=== PATIENT | male | born 1975 | race Caucasian/White ===

== ENCOUNTER → 2020-11-07 15:55 | Outpatient (BNVA) | payer BC, SELFPAY | PROVIDERS: Family Provider Family Medicine; Visit Provider Nurse Practitioner | DX: Z20.822 Contact with and (suspected) exposure to COVID-19 (principal) | CPT/HCPCS: 87635 ==

== ENCOUNTER 2024-08-18 02:53 | Inpatient (IN) | payer SELFPAY ==
[2024-08-18] VITALS (18 sets, daily range): BP systolic 81–147; BP diastolic 48–95; PULSE 73–84; RESP 10–24; TEMP 36.5–37; O2SAT 94–100; BMI 31.5; BMI 33.2
--- NOTE | 2024-08-18 03:05 | XRR_ITS ---
PROCEDURE INFORMATION: Exam: XR Chest Exam date and time: 08/18/2024 3:07 AM Age: 48 years old Clinical indication: Chest pressure; C/O chest pain with hypertension TECHNIQUE: Imaging protocol: Radiologic exam of the chest. Views: 1 view. COMPARISON: No relevant prior studies available. FINDINGS: Lungs: Unremarkable. No consolidation. Pleural spaces: Unremarkable. No pleural effusion. No pneumothorax. Heart/Mediastinum: Borderline to mild cardiomegaly. Diaphragm: Elevation of the left hemidiaphragm consistent with eventration. Bones/joints: Unremarkable. XR/XR chest 1V portable [id number] IMPRESSION: Borderline to mild cardiomegaly.
--- NOTE | 2024-08-18 03:05 | ECG_ITS ---
[facility] [employer] Test Date: 2024-08-18 Pat Name: Marcin Macias Department: Room: Gender: Male Cotton Farmer: : 1975 Requested By: Paulo Billingsley Order Number: [id number] Brooke MD: LONG ANDERSON Measurements Intervals [place] Rate: 70 P: 28 SC: 159 QRS: -11 QRSD: 104 T: -66 QT: 448 QTc: 483 Interpretive Statements SINUS RHYTHM LEFT VENTRICULAR HYPERTROPHY AND ST-T CHANGE [VOLTAGE CRITERIA PLUS ST/T ABNORMALITY] No previous ECG available for comparison Electronically Signed On 08-18-2024 16:23:36 CDT by LONG ANDERSON [email or web address] [id number]
[2024-08-18] MEDS: aspirin 81 mg Chew Tablet 324 MG PO (03:10)
[2024-08-18 03:14] LABS: Basophils # 0.1 10^3/uL (0.0-0.1); Basophils % 0.4 %; Eosinophils # 0.1 10^3/uL (0.0-0.8); Eosinophils % 0.3 %; Hematocrit 43.2 % (37-53); Lymphocytes # 2.3 10^3/uL (0.8-4.8); Mean Corpuscular HGB Conc 34.3 g/dL (30-55); Mean Corpuscular Hemoglobin 30.9 pg (27-33); Mean Corpuscular Volume 90.2 fl (82-101); Mean Platelet Volume 10.2 fL (7.4-10.4); Monocytes # 1.2 10^3/uL (0.2-0.9); Monocytes % 6.6 %; Neutrophils # 13.72 10^3/uL (1.8-7.7); Neutrophils % 79.3 %; Nucleated Red Blood Cells % 0 %; Platelet Count 354 10^3/cmm (157-399); Red Blood Count 4.79 10^6/uL (3.85-5.65); White Blood Count 17.33 10^3/uL (3.29-11.43)
[2024-08-18 03:33] LABS: Alanine Aminotransferase 28 U/L (0-41); Albumin Level 4.6 g/dL (3.5-5.2); Alkaline Phosphatase 80 U/L (40-130); Anion Gap 17.9 (5-19); Aspartate Amino Transferase 36 U/L (0-40); Blood Urea Nitrogen 29 mg/dL (6-20); Calcium 9.6 mg/dL (8.5-10.5); Carbon Dioxide 27 mmol/L (22-29); Chloride 99 mmol/L (98-107); Creatinine Clr Calc Pharmacy 56.9122; Globulin 2.3 g/dL (1.3-4.6); Glomerular Filtration Rate 38.2 mL/min (90-130); Glucose 159 mg/dL (65-115); Osmolality Calculated 299 mOsm/kg (285-295); Potassium 3.9 mmol/L (3.5-5.1); Sodium 140 mmol/L (136-145); Total Bilirubin 0.4 mg/dL (0.15-1.2); Total Protein 6.9 g/dL (6.6-8.7)
[2024-08-18] MEDS: ondansetron 2 mg/ML SDV 2 mL 4 MG IVP ×2 (03:38→11:18)
[2024-08-18 03:39] LABS: Troponin(5th) Baseline 312 ng/L (0-15)
[2024-08-18] MEDS: sodium chloride 0.9% 1,000 ML 999 ML IV (03:39)
[2024-08-18] MEDS: ticagrelor 90 mg Tablet 180 MG PO (03:49)
[2024-08-18] MEDS: heparin 5,000 unit/mL INJ 1 mL 4000 UNIT IVP (03:50)
--- NOTE | 2024-08-18 03:53 | W.ED.CHESTPA ---
HPI - Chest Pain General: Chief Complaint: Chest Pain Stated Complaint: Cp Sob Dizzy back pain Time Seen by Provider: 08/18/24 02:59 History of Present Illness: 48-year-old male who presents emerged part with complaint of chest pain. He states that the pain started around 830 tonight. States that he came short of breath and diaphoretic and had pain up to his neck and down his left shoulder. He was concerned that maybe his blood pressure was too high so his mother gave him one of her blood pressure medications although they did not actually take his blood pressure so they are not sure what his blood pressure was. The medication that his mother gave him is losartan. Unsure of the dosage. Patient occasionally chews tobacco but otherwise no other smoking history. Is not diabetic. Has not seen a physician in many years. Related Data Home Medications ?Medication ?Instructions ?Recorded ?Confirmed No Known Home Medications 11/07/20 11/07/20 Allergies Allergy/AdvReac Type Severity Reaction Status Date / Time No Known Allergies Allergy Verified 11/07/20 15:40 Physical Exam Const: COMMON NORMALS: average body habitus, patient oriented x3, no limitations, healthy appearing, alert and well nourished Neck/C-Spine: COMMON NORMALS: no JVD Resp: COMMON NORMALS: normal respiratory effort, No retractions, No use of accessory muscles, clear to auscultation bilaterally and percussion normal AUSCULTATION: clear to auscultation bilaterally PERCUSSION: percussion normal Cardio: COMMON NORMALS: no JVD, regular rate, regular rhythm, S1 normal heart sound present, S2 normal heart sound present, No gallops present (Cardio), No clicks present (Cardio), No murmurs present (Cardio), No rub (Cardio) and Peripheral pulses 2+ throughout RATE: regular rate RHYTHM: regular rhythm HEART SOUNDS: S1 normal heart sound present and S2 normal heart sound present PERIPHERAL PULSES: Peripheral pulses 2+ throughout GI: COMMON NORMALS: Normal to inspection, nondistended, normoactive bowel sounds present, Soft to palpation, non-tender, No hepatosplenomegaly present, no masses and no bruits PALPATION: Yes Soft to palpation and Yes No hepatosplenomegaly present Neuro: COMMON NORMALS: patient oriented x3, no focal motor deficits and no sensory deficits noted SENSORIUM/ORIENTATION: Yes alert Course Vital Signs: Vital signs: Vital Signs Temperature 97.7 F 08/18/24 03:02 Pulse Rate 74 08/18/24 03:52 Respiratory Rate 18 08/18/24 03:02 Blood Pressure 81/48 08/18/24 03:52 Pulse Oximetry 97 08/18/24 03:52 Oxygen Delivery Me thod Room Air 08/18/24 03:52 MDM - Chest Pain Medical Decision Making Patient presents emerged from with complaint of chest pain x 7 hours. No previous cardiac history. EKG shows some nonspecific ST and T wave changes. There are some mild ST elevations in aVF and morphology that is concerning in leads II and III with an inverted T waves in the anterior leads. Does not meet criteria for ST elevation TN but is very concerning based upon morphology. EKG was repeated 3 times with similar results. Initial troponin came back at 312. Discussed case with Dr. Richardson. He agrees to take patient to cardiac [facility] tonight. Patient's blood pressure is low and concerning patient is having acute TN. Patient was given p.o. aspirin and p.o. Brilinta as well as IV heparin. Given 2 L of IV fluids to bring pressure back up. Given Zofran for nausea and vomiting. Lab Data 08/18/24 03:02 08/18/24 03:02 Laboratory Results WBC 17.33 10^3/uL (3.29-11.43) H 08/18/24 03:02 RBC 4.79 10^6/uL (3.85-5.65) 08/18/24 03:02 Hgb 14.80 g/dL (11.27-16.99) 08/18/24 03:02 Hct 43.2 % (37-53) 08/18/24 03:02 MCV 90.2 fl (82-101) 08/18/24 03:02 MCH 30.9 pg (27-33) 08/18/24 03:02 MCHC 34.3 g/dL (30-55) 08/18/24 03:02 RDW 13.0 % (12.1-15.1) 08/18/24 03:02 Plt Count 354 10^3/cmm (157-399) 08/18/24 03:02 MPV 10.2 fL (7.4-10.4) 08/18/24 03:02 Neut % (Auto) 79.3 % 08/18/24 03:02 Lymph % (Auto) 13.0 % 08/18/24 03:02 [place] % (Auto) 6.6 % 08/18/24 03:02 Eos % (Auto) 0.3 % 08/18/24 03:02 Baso % (Auto) 0.4 % 08/18/24 03:02 Neut # (Auto) 13.72 10^3/uL (1.8-7.7) H 08/18/24 03:02 Lymph # (Auto) 2.3 10^3/uL (0.8-4.8) 08/18/24 03:02 [place] # (Auto) 1.2 10^3/uL (0.2-0.9) H 08/18/24 03:02 Eos # (Auto) 0.1 10^3/uL (0.0-0.8) 08/18/24 03:02 Baso # (Auto) 0.1 10^3/uL (0.0-0.1) 08/18/24 03:02 Nucleated RBC % (auto) 0 % 08/18/24 03:02 Nucleated RBCs # 0.0 /100WBC 08/18/24 03:02 Sodium 140 mmol/L (136-145) 08/18/24 03:02 Potassium 3.9 mmol/L (3.5-5.1) 08/18/24 03:02 Chloride 99 mmol/L (98-107) 08/18/24 03:02 Carbon Dioxide 27 mmol/L (22-29) 08/18/24 03:02 Anion Gap 17.9 (5-19) 08/18/24 03:02 BUN 29 mg/dL (6-20) H 08/18/24 03:02 Creatinine 1.9 mg/dL (0.7-1.2) H 08/18/24 03:02 GFR Calculation 38.2 mL/min (90-130) L 08/18/24 03:02 Glucose 159 mg/dL (65-115) H 08/18/24 03:02 Calculated Osmolality 299 mOsm/kg (285-295) H 08/18/24 03:02 Calcium 9.6 mg/dL (8.5-10.5) 08/18/24 03:02 Total Bilirubin 0.4 mg/dL (0.15-1.2) 08/18/24 03:02 AST 36 U/L (0-40) 08/18/24 03:02 ALT 28 U/L (0-41) 08/18/24 03:02 Alkaline Phosphatase 80 U/L (40-130) 08/18/24 03:02 Troponin T Baseline 312 ng/L (0-15) H* 08/18/24 03:02 Total Protein 6.9 g/dL (6.6-8.7) 08/18/24 03:02 Albumin 4.6 g/dL (3.5-5.2) 08/18/24 03:02 Globulin 2.3 g/dL (1.3-4.6) 08/18/24 03:02 XR interpretation done by ED provider, pending radiology final review Discharge Plan Discharge Condition: Stable Prescriptions: No Action No Known Home Medications Referrals: Godfrey Cornelius MD [Family Provider, Family Practice] Print Language: Yakut Coding Level of Care Code ED Dispatcher Ship Pilot for Avril Morley
--- NOTE | 2024-08-18 04:22 | W.PM.OPSUD ---
Surgery/Procedure H&P Update DATE OF PROCEDURE: August 18, 2024 DATE H&P PERFORMED: 08/18/24 H&P UPDATE INFORMATION: I have reviewed H&P completed within last 30 days, I have examined patient prior to procedure and No changes to prior documentation PREOP DIAGNOSIS: ST elevation ID PATIENT REASSESSED PRIOR TO SEDATION, WITH NO CHANGE NOTED: Yes PHYSICAL EXAM: alert, oriented x 3, clear to auscultation bilaterally, regular rate & rhythm and operative site marked AIRWAY EVAL/ANESTHESIA PLAN: ASA II, Risks, benefits & alternatives of sedation and/or procedure discussed and Patient agrees to continue as planned ADDITIONAL INFORMATION: All risk-benefit and alternative for the procedure has been explained. Patient understand 2% risk of stroke major bleed arrhythmia, patient understand 5% risk of infection hematoma pseudoaneurysm urgent emergent vascular or coronary/cardiac surgery. He would like to proceed with
--- NOTE | 2024-08-18 04:24 | PM.HP ---
Providers/Chief Complaint Chief Complaint: Cp Sob Dizzy back pain History of Present Illness Marcin Macias is a 48 year old male presented to emergency with chest pain which started off and on basis 6 PM last night. Twelve-lead EKG was concerning with subtle ST elevations in the inferior/inferolateral leads. He was also noted to be hypotensive blood pressure systolic in the 70s. ST elevation [place] was called and activated, he was given IV fluid, IV heparin and loaded with Brilinta and aspirin. When I saw the patient in the emergency room he still have the pain but blood pressure has come up. He had 30 beat run of ventricular tachycardia. At this point we are deciding to take him to the Social Insurance Administrator for emergent left heart cath/PCI. Medications/Allergies Home Medications ?Medication ?Instructions ?Recorded ?Confirmed ?Last Taken ?Type No Known Home Medications 11/07/20 11/07/20 Unknown History Allergies Allergy/AdvReac Type Severity Reaction Status Date / Time No Known Allergies Allergy Verified 11/07/20 15:40 Vitals/I&O/Wt Last Vital Signs Temp 97.7 F 08/18/24 03:02 Pulse 77 08/18/24 04:06 Resp 24 H 08/18/24 04:06 BP 118/68 08/18/24 04:06 Pulse Ox 96 08/18/24 04:06 O2 Del Method Room Air 08/18/24 04:06 08/17/24 08/17/24 08/18/24 14:59 22:59 06:59 Intake Total 0 / 0 Balance 0 / 0 Weight last 48 hrs Weight 220 lb Physical Exam Const: OTHER: GENERAL: Patient is alert, awake and oriented x3. He is in moderate distress HEART: Regular S1 and S2. No murmur, rub or gallop. LUNGS: Clear to auscultate bilaterally. CENTRAL NERVOUS SYSTEM: Grossly nonfocal. EXTREMITIES: Lower extremities with out edema bilaterally. Data 08/18/24 03:02 08/18/24 03:02 A&P Assessment and plan (1) ST elevation [place] (STEMI): Will proceed with urgent left heart cath/PCI if indicated. Patient has been explained all risk-benefit and alternative for the procedure he would like to proceed with it. (2) Hypotension: Most likely secondary to myocardial infarction/RV involvement, agree with IV fluid (3) Arrhythmia: Secondary to ischemia, we will take him to the Social Insurance Administrator if needed we will start him on amiodarone. PDMP PDMP Reviewed: Not Reviewed Attestations Medical Necessity Statement*: I am expecting his stay to cross more than 2 midnights he will be admitted as an inpatient. Coding Level of Care Code [facility] elevation [place] (STEMI) I21.3 Hypotension I95.9 Arrhythmia I49.9
--- NOTE | 2024-08-18 05:05 | ECG_ITS ---
[facility] Test Date: 2024-08-18 Pat Name: Marcin Macias Department: Room: Gender: Male Licensing Coordinator: : 1975 Requested By: Paulo Billingsley Order Number: [id number] Brooke MD: LONG ANDERSON Measurements Intervals [place] Rate: 76 P: 40 VA: 154 QRS: -10 QRSD: 92 T: 137 QT: 417 QTc: 469 Interpretive Statements SINUS RHYTHM MODERATE T-WAVE ABNORMALITY, CONSIDER ANTEROLATERAL ISCHEMIA [-0.1+ mV T-WAVE IN V3-V6] No previous ECG available for comparison Electronically Signed On 08-18-2024 16:24:26 CDT by LONG ANDERSON [id number]
--- NOTE | 2024-08-18 05:25 | PM.PROC ---
Procedure Note: Date of procedure: 08/18/24 Pre-procedure diagnosis: ST elevation [place] Procedure: Left heart catheterization was performed Left main is normal LAD has luminal irregularity without significant stenosis LCx has luminal irregularity without significant stenosis RCA is the culprit vessel is a large caliber size vessel with mid high-grade 99% stenosis with TRICIA II flow Intervention: Successful PCI to mid RCA with single drug-eluting stent postdilated with noncompliant balloon. Due to tortuosity of the aorta we did not cross the aorta to do LV gram at the same time patient creatinine is 1.9 therefore we will avoid further contrast will ask for echocardiogram Plan Radial band as per protocol Continue IV fluid drip for 100 mL/h for 1 L Continue aspirin statin Continue Brilinta from tomorrow 90 mg twice daily patient was already loaded with 180 mg of Brilinta today in the ER Echocardiogram will be obtained Coding Level of Care Code Acute Code for Avril Morley
--- NOTE | 2024-08-18 05:27 | USCV_ITS ---
Gilberto Marcin Age: 48 Gender: M : 1975 Exam Date: 08/18/2024 08:33 Ordering Phys: Shi Richardson MD ([email or web address]) Technologist: PUJA [place] [facility] [place]: stemi BP: 130 / 86 HR: 75 Rhythm: Sinus Technical Quality: Adequate MEASUREMENTS (Male / Female) Normal Values 2D ECHO LV Diastolic Diameter PLAX 4.3 cm 4.2 - 5.9 / 3.9 - 5.3 cm IVS Diastolic Thickness 1.6 cm 0.6 - 1.0 / 0.6 - 0.9 cm IVS Systolic Thickness 1.8 cm LVPW Diastolic Thickness 1.5 cm 0.6 - 1.0 / 0.6 - 0.9 cm LVPW Systolic Thickness 1.9 cm LVOT Diameter 2.1 cm LV Ejection Fraction 2D Teich 51.3 % LV Ejection Fraction MOD 4C 55.2 % LV Ejection Fraction MOD 2C 52.3 % LV Ejection Fraction 2C AL 54.2 % LA Diameter 3.4 cm RA Systolic Volume 4C AL 25.3 ml RA Systolic Volume 4C MOD 25.1 ml LA Sys Volume AL 37.8 cm cubed LA Sys Volume Index AL 16.4 cm cubed/m squared Aorta at Sinotubular Diameter 2.6 cm IVC Diameter 2.0 cm M-MODE LA Ao Ratio MM 1.0 AV Cusp Separation MM 2.2 cm DOPPLER AV Peak Velocity 121.0 cm/s LVOT Peak Velocity 84.0 cm/s AV Area Cont Eq vti 2.2 cm squared AV Area Cont Eq pk 2.4 cm squared MV Peak Velocity 90.0 cm/s MV Area PHT 3.1 cm squared Mitral E to A Ratio 0.7 TR Peak Velocity 260.0 cm/s TR Peak Gradient 27.0 mmHg TR Mean Velocity 234.0 cm/s TR Mean Gradient 22.1 mmHg TR Velocity Time Integral 73.7 cm PV Peak Velocity 85.0 cm/s RV Ejection Time 0.3 s FINDINGS Left Ventricle Mild to moderate concentric left tubular hypertrophy.abnormal septal motion consistent with conduction abnormality. LV ejection fraction of 54%.Grade I/IV diastolic dysfunction (abnormal relaxation filling pattern), normal to mildly elevated filling pressures. Right Ventricle The right ventricle is normal in size and function. Right Atrium The right atrium is normal in size. Left Atrium Mildly increased left atrial size. Mitral Valve No gross abnormalities noted Aortic Valve No gross abnormalities noted Tricuspid Valve Trace tricuspid valve regurgitation. Estimated pulmonary artery peak systolic pressure within normal limits Pulmonic Valve Pulmonic valve not well visualized. Pericardium No pericardial effusion. Aorta Normal aortic annulus size. IVC Normal inferior vena cava. CONCLUSIONS Mild to moderate concentric left tubular hypertrophy.abnormal septal motion consistent with conduction abnormality. LV ejection fraction of 54%.Grade I/IV diastolic dysfunction (abnormal relaxation filling pattern), normal to mildly elevated filling pressures. Mildly increased left atrial size. Trace tricuspid valve regurgitation. Estimated pulmonary artery peak systolic pressure within normal limits. There is no pericardial effusion. There are no intracardiac masses. No similar previous studies are available for comparison Dr Gary Samuels MD FAC (Electronically Signed) Final Date: 20 Aug 2024 07:37 S
[2024-08-18] MEDS: sodium chloride 0.9% 1,000 ML 100 ML IV ×3 (05:55→23:51)
[2024-08-18] MEDS: HYDROcodone-acetaminophen 5-325 mg Tablet 1 TAB PO (05:56)
--- NOTE | 2024-08-18 06:36 | PC.NURSE ---
TR band 0630 2 mL removed
[2024-08-18] MEDS: morphine 4 mg/mL SDV 1 mL 2 MG IVP (07:33)
--- NOTE | 2024-08-18 07:57 | PC.PHAR ---
Pt states he uses [facility] and only takes ASA and Sertraline.
[2024-08-18] MEDS: ticagrelor 90 mg Tablet PO (09:00)
--- NOTE | 2024-08-18 09:14 | ECG_ITS ---
[facility] Test Date: 2024-08-18 Pat Name: Marcin Macias Department: Room: ICU11 Gender: Male Is Project Manager: : 1975 Requested By: Paulo Billingsley Order Number: [id number] Reading MD: LONG ANDERSON Measurements Intervals [place] Rate: 79 P: 39 CT: 155 QRS: -30 QRSD: 105 T: 140 QT: 413 QTc: 476 Interpretive Statements SINUS RHYTHM LEFT VENTRICULAR HYPERTROPHY AND ST-T CHANGE [VOLTAGE CRITERIA PLUS ST/T ABNORMALITY] Compared to ECG 08/18/2024 04:07:40 Left ventricular hypertrophy now present ST (T wave) deviation now present Myocardial infarct finding no longer present T-wave abnormality no longer present Possible ischemia no longer present Electronically Signed On 08-18-2024 16:24:22 CDT by LONG ANDERSON [email or web address] [id number]
--- NOTE | 2024-08-18 12:29 | PC.NURSE ---
0700 2 mL removed from Right radial TR band. Resting in bed, v/s stable. Reports having medial chest pain with no relief from hydrocodone. Notified Dr. Richardson, order given for Morphine 2g IVP every 2 hours prn pain. 0715 -- 2 mL air removed from right radial TR band. 0845 -- 2mL air removed from right radial TR band. 0915 -- 2mL air removed from right radial TR band. 0945 -- 2mL air removed from right radial TR band. 1000 -- last 2mL or air removed from right radial TR band. No bleeding or hematoma noted. 1045 -- TR band removed from right wrist. No bleeding or hematoma noted. Bandaid placed over puncture site. 1215 -- Dr. Richardson to bedside, patient assessed. Notified that patient is having shortness of breath and feels like he can not take a deep breath. Brilinta discontinued, plavix ordered. Hgb A1C ordered.
[2024-08-18 12:50] LABS: Estmated Average Glucose 140; Hemoglobin A1C 6.5 % (4.0-6.0)
--- NOTE | 2024-08-18 13:19 | PC.NURSE ---
Report given to JOSÉ Rudolph.
--- NOTE | 2024-08-18 14:07 | PC.NURSE ---
Transferred to 103 via wheelchair. Tolerated well.
--- NOTE | 2024-08-18 15:04 | PC.NURSE ---
Patient received from ICU. Patient is s/p STEMI with PCI and right radial access. Dressing to site remains c,d,i without s/s of bleeding or hematoma formation observed. Instructed patient on site care with restrictions, importance of medication compliance and pain expectation post procedure. Patient and family all verbalized complete understanding. Patient denies pain or needs at time. Will continue to monitor.
[2024-08-18] MEDS: clopidogrel 300 mg Tablet 600 MG PO (20:53)
[2024-08-18] MEDS: atorvastatin 40 mg Tablet 80 MG PO (20:53)
[2024-08-19] VITALS (7 sets, daily range): BP systolic 112–153; BP diastolic 78–105; PULSE 63–77; RESP 16–24; TEMP 36.6–36.7; O2SAT 95–99
--- NOTE | 2024-08-19 01:12 | PC.NURSE ---
Patient is having episodes of sleep apnea, tried using 2 liters of 02 nasal cannula for a couple of hours. This helped, patient is now refusing even after trying humidified. Will continue to monitor
[2024-08-19 03:23] LABS: Basophils # 0.1 10^3/uL (0.0-0.1); Basophils % 0.6 %; Eosinophils # 0.2 10^3/uL (0.0-0.8); Eosinophils % 1.6 %; Lymphocytes # 3.3 10^3/uL (0.8-4.8); Lymphocytes % 29.9 %; Mean Corpuscular HGB Conc 32.4 g/dL (30-55); Mean Corpuscular Hemoglobin 31.1 pg (27-33); Mean Corpuscular Volume 96.1 fl (82-101); Mean Platelet Volume 10.2 fL (7.4-10.4); Monocytes # 1.2 10^3/uL (0.2-0.9); Monocytes % 11.3 %; Neutrophils # 6.15 10^3/uL (1.8-7.7); Neutrophils % 56.3 %; Nucleated Red Blood Cells % 0 %; Platelet Count 249 10^3/cmm (157-399); Red Blood Count 4.37 10^6/uL (3.85-5.65); Red Cell Distribution Width 13.4 % (12.1-15.1); White Blood Count 10.92 10^3/uL (3.29-11.43)
[2024-08-19 03:35] LABS: Anion Gap 15.1 (5-19); Blood Urea Nitrogen 15 mg/dL (6-20); Calcium 8.7 mg/dL (8.5-10.5); Carbon Dioxide 22 mmol/L (22-29); Chloride 108 mmol/L (98-107); Creatinine Clr Calc Pharmacy 123.1389; Glomerular Filtration Rate 90.4 mL/min (90-130); Glucose 115 mg/dL (65-115); Osmolality Calculated 294 mOsm/kg (285-295); Potassium 4.1 mmol/L (3.5-5.1); Sodium 141 mmol/L (136-145)
[2024-08-19] MEDS: clopidogrel 75 mg Tablet PO (08:26)
[2024-08-19] MEDS: HYDROcodone-acetaminophen 5-325 mg Tablet 1 TAB PO (09:53)
[2024-08-19 15:34] LABS: Estmated Average Glucose 134; Hemoglobin A1C 6.3 % (4.0-6.0)
--- NOTE | 2024-08-19 16:20 | P.PN_ITS ---
Subjective 2 Subjective: Patient has no overnight event blood pressure is stable creatinine has improved to normal Vitals/I&O/Wt Last Vital Signs Temp 98.0 F 08/19/24 16:06 Pulse 69 08/19/24 16:06 Resp 18 08/19/24 16:06 BP 153/83 08/19/24 16:06 Pulse Ox 97 08/19/24 16:06 O2 Del Method Room Air 08/19/24 11:49 08/19/24 08/19/24 08/19/24 06:59 14:59 22:59 Intake Total 1425.000 / 2846.667 360 / 360 Output Total 800 / 1700 Balance 625.000 / 1146.667 360 / 360 Weight last 48 hrs Weight 240 lb 14.4 oz Weight 231 lb 7.766 oz Weight 220 lb Physical Exam 2 Const: COMMON NORMALS: alert OTHER: GENERAL: Patient is alert, awake and oriented x3. HEART: Regular S1 and S2. No murmur, rub or gallop. LUNGS: Clear to auscultate bilaterally. CENTRAL NERVOUS SYSTEM: Grossly nonfocal. EXTREMITIES: Lower extremities with out edema bilaterally. Resp: COMMON NORMALS: clear to auscultation bilaterally AUSCULTATION: clear to auscultation bilaterally Neuro: SENSORIUM/ORIENTATION: Yes alert Data 08/19/24 02:57 08/19/24 02:57 A&P Assessment and plan (1) ST elevation [place] (STEMI): Will proceed with urgent left heart cath/PCI if indicated. Patient has been explained all risk-benefit and alternative for the procedure he would like to proceed with it. (2) Hypotension: Most likely secondary to myocardial infarction/RV involvement, agree with IV fluid (3) Arrhythmia: Secondary to ischemia, we will take him to the Tieing Machine Operator if needed we will start him on amiodarone. Plan Overall patient doing fine from cardiovascular perspective I will add metoprolol and HERB inhibitor, waiting echo read Continue aspirin statin and Plavix Since we switched patient from Brilinta to Plavix shortness of breath is improved as patient was complaining of shortness of breath yesterday. He appeared to be euvolemic. Patient has been advised to walk around Will check hemoglobin A1c and lipid profile in the morning Possible discharge in the morning PDMP PDMP Reviewed: Not Reviewed Attestations 2 Medical Necessity Statement*: Patient require continuation of hospitalization for evaluation and care Coding Level of Care Code Acute Code for [facility] Diagnoses ST elevation PR (STEMI) I21.3 Hypotension I95.9 Arrhythmia I49.9
[2024-08-19] MEDS: metoprolol succinate ER (24 HR) 25 mg Tablet 12.5 MG PO (16:33)
[2024-08-19 16:40] LABS: Chol HDL Ratio 2.64 mg/dL (1.0-5.00); Cholesterol 145 mg/dL (0-200); HDL Cholesterol 55 mg/dL (60-100); LDL Cholesterol Calculated 69 mg/dL (50-129); LDL HDL Ratio 1.25 RATIO (0.00-3.22); Triglycerides 107 mg/dL (0-150)
[2024-08-19] MEDS: atorvastatin 40 mg Tablet 80 MG PO (20:34)
[2024-08-20 00:07] VITALS: BP 149/91; PULSE 68; RESP 18; TEMP 36.4; O2SAT 99
[2024-08-20 04:04] VITALS: BP 153/96; PULSE 67; RESP 15; TEMP 36.4; O2SAT 98
[2024-08-20 05:54] VITALS: PULSE 66
[2024-08-20 07:56] VITALS: BP 143/88; PULSE 75; RESP 20; TEMP 37; O2SAT 97
[2024-08-20] MEDS: aspirin 81 mg EC Tablet PO (08:19)
[2024-08-20] MEDS: sertraline 50 mg Tablet 25 MG PO (08:19)
[2024-08-20] MEDS: lisinopril 2.5 mg Tablet PO (08:20)
[2024-08-20] MEDS: metoprolol succinate ER (24 HR) 25 mg Tablet 12.5 MG PO (08:20)
[2024-08-20] MEDS: clopidogrel 75 mg Tablet PO (08:20)
[2024-08-20 08:37] LABS: Basophils # 0.1 10^3/uL (0.0-0.1); Basophils % 0.5 %; Eosinophils # 0.2 10^3/uL (0.0-0.8); Hematocrit 42.6 % (37-53); Lymphocytes # 2.3 10^3/uL (0.8-4.8); Lymphocytes % 24.9 %; Mean Corpuscular HGB Conc 33.6 g/dL (30-55); Mean Corpuscular Hemoglobin 30.8 pg (27-33); Mean Corpuscular Volume 91.6 fl (82-101); Mean Platelet Volume 10.2 fL (7.4-10.4); Monocytes # 0.9 10^3/uL (0.2-0.9); Neutrophils # 5.73 10^3/uL (1.8-7.7); Neutrophils % 62.2 %; Nucleated Red Blood Cells % 0 %; Platelet Count 264 10^3/cmm (157-399); Red Blood Count 4.65 10^6/uL (3.85-5.65); Red Cell Distribution Width 13.2 % (12.1-15.1); White Blood Count 9.21 10^3/uL (3.29-11.43)
[2024-08-20 09:03] LABS: Anion Gap 17.2 (5-19); Blood Urea Nitrogen 11 mg/dL (6-20); Calcium 9.1 mg/dL (8.5-10.5); Carbon Dioxide 25 mmol/L (22-29); Chloride 103 mmol/L (98-107); Creatinine Clr Calc Pharmacy 140.4985; Glomerular Filtration Rate 103.6 mL/min (90-130); Glucose 113 mg/dL (65-115); Osmolality Calculated 292 mOsm/kg (285-295); Potassium 4.2 mmol/L (3.5-5.1); Sodium 141 mmol/L (136-145)
--- NOTE | 2024-08-20 09:03 | PC.CHAP ---
Pastoral Care Encounter/Spiritual Assessment Type of Contact [] Declined kick plate installer visit [] Patient/Family/Request visit [] Outpatient visit [] Follow-up visit [] Physician referral [] Code/Alert [x] Routine visit [] Staff referral [] Actively dying [] Patient sleeping [] Family support [] [] Out of room [] Palliative care [] [] Receiving care in room [] Pre-surgical visit [] Trauma [] Long length of stay [] ICU visit [] Other: Relational/Emotional Strength [] Patient feels connected with others/family/visitors/staff [] Distress [] Loneliness/isolation [] Abandonment Spirituality of Patient [x] Person of Shelbie [] Attends Yarsanism of their Shelbie [x] Believes in Prayer [] Reads Bible or Advent materials [] There are Spiritual issues to be addressed System Technologist Interventions [x] Prayer [x] Active listening [] Non-anxious presence [] Spiritual/emotional support [] Crisis/trauma care [] Spiritual counseling [] Bereavement support [] Provided bereavement packet [x] Provided Bible/devotional materials [] Provided toy/stuffed animal, coloring book to patient or family member [] Provided Communion [] Anointing/Epworth [] Salvation [x] Completed spiritual assessment [] Other: Impact on Illness or Injury [] Angry [] Fearful [] Anxious [] Often cries [] Exhaustion [] Unable to work [] Unable to attend scientologist [] Unable to walk/stand [] Unable to read [] Unable to drive [] Unable to eat/drink [] Unable to sleep [] Unable to be with family [] Patient intubated [] Other: Summary Time spent with patient 5 min
--- NOTE | 2024-08-20 10:20 | P.DS_ITS ---
<Statement entered by Shi Richardson MD - 08/20/24 21:00> Patient was evaluated and cared for in conjunction with an advanced practice practitioner. I personally examined the patient and reviewed the chart and all pertinent data including imaging, telemetry, and laboratory results. I discussed the patient in detail with the advanced practice practitioner. Please see their note for complete H&P testing result and agreed upon plan of care for the patient. Discharge Providers Date of Admission: 08/18/24 05:29 Date of Discharge: August 20, 2024 Attending Provider at Admission: Shi Richardson MD Attending Provider at Discharge: Shi Richardson MD Diagnoses at Discharge Discharge Diagnosis (1) ST elevation HI (STEMI): Status: Acute (2) Hypotension: Status: Acute (3) Arrhythmia: Status: Acute Reason for Visit Reason for Visit: Cp Sob Dizzy back pain Brief History: Marcin Macias is a 48 year old male presented to emergency with chest pain which started off and on basis 6 PM last night. Twelve-lead EKG was concerning with subtle ST elevations in the inferior/inferolateral leads. He was also noted to be hypotensive blood pressure systolic in the 70s. ST elevation HI was called and activated, he was given IV fluid, IV heparin and loaded with Brilinta and aspirin. When I saw the patient in the emergency room he still have the pain but blood pressure has come up. He had 30 beat run of ventricular tachycardia. At this point we are deciding to take him to the [facility] for emergent left heart cath/PCI. Hospital Course Hospital Course Coronary angiogram on 08/18/2024 showed normal left main, LAD, left circumflex. The RCA contained significant mid vessel stenosis treated with JAILYN x 1. Initially treated with Brilinta, transitioned to Plavix due to shortness of breath. Right radial cath site looks good without hematoma. Renal function is normal today. Will plan to discharge home with aspirin, Plavix, atorvastatin, metoprolol succinate, lisinopril. Blood pressure and heart rate have been well- controlled. Follow-up with cardiology [facility] in 7 to 10 days. Will need cardiac rehab. He has history of SAMIA, recommended he discuss treatment with his primary care provider. Physical Exam Const: COMMON NORMALS: no acute distress and patient oriented x3 GENERAL APPEARANCE: cooperative ORIENTATION/CONSCIOUSNESS: Yes awake, Yes oriented to person, Yes oriented to place and Yes oriented to time Chest: COMMONS NORMALS: normal inspection of the chest and normal palpation of entire chest wall CHEST: Yes Symmetrical chest wall rise Resp: COMMON NORMALS: normal respiratory effort, No retractions, No use of accessory muscles and clear to auscultation bilaterally AUSCULTATION: clear to auscultation bilaterally Cardio: COMMON NORMALS: regular rate, regular rhythm, S1 normal heart sound present, S2 normal heart sound present, No gallops present (Cardio), No clicks present (Cardio), No murmurs present (Cardio) and No rub (Cardio) RATE: regular rate RHYTHM: regular rhythm HEART SOUNDS: S1 normal heart sound present and S2 normal heart sound present PERIPHERAL PULSES: radial pulses present positive right 2+ and femoral pulses present positive right 2+ Neuro: COMMON NORMALS: patient oriented x3 and moves all extremities SENSORIUM/ORIENTATION: Yes oriented to person, Yes oriented to place and Yes oriented to time Skin: WOUNDS: Yes surgical site (no hematoma palpable) Details: no odor Discharge Data Studies Completed and Pending Completed Studies During Hospitalization Category Date Time Status CXRP [XR chest 1V portable [id number]] Stat Exams 08/18/24 03:05 Completed CV. echo complete* [id number] Routine Ultrasound 08/18/24 05:27 Completed Pending at discharge Category Date Time Status CAR USHER request for service Routine Exams 08/18/24 04:17 Taken Radiology Impressions Chest X-Ray 08/18/24 03:05 IMPRESSION: Borderline to mild cardiomegaly. Laboratory Results WBC 9.21 10^3/uL (3.29-11.43) 08/20/24 08:28 RBC 4.65 10^6/uL (3.85-5.65) 08/20/24 08:28 Hgb 14.30 g/dL (11.27-16.99) 08/20/24 08:28 Hct 42.6 % (37-53) 08/20/24 08:28 MCV 91.6 fl (82-101) 08/20/24 08:28 MCH 30.8 pg (27-33) 08/20/24 08:28 MCHC 33.6 g/dL (30-55) 08/20/24 08:28 RDW 13.2 % (12.1-15.1) 08/20/24 08:28 Plt Count 264 10^3/cmm (157-399) 08/20/24 08:28 MPV 10.2 fL (7.4-10.4) 08/20/24 08:28 Neut % (Auto) 62.2 % 08/20/24 08: Lymph % (Auto) 24.9 % 08/20/24 08: [place] % (Auto) 10.0 % 08/20/24 08:28 Eos % (Auto) 2.0 % 08/20/24 08: Baso % (Auto) 0.5 % 08/20/24 08:28 Neut # (Auto) 5.73 10^3/uL (1.8-7.7) 08/20/24 08: Lymph # (Auto) 2.3 10^3/uL (0.8-4.8) 08/20/24 08: [place] # (Auto) 0.9 10^3/uL (0.2-0.9) 08/20/24 08: Eos # (Auto) 0.2 10^3/uL (0.0-0.8) 08/20/24 08: Baso # (Auto) 0.1 10^3/uL (0.0-0.1) 08/20/24 08: Nucleated RBC % (auto) 0 % 08/20/24 08: Nucleated RBCs # 0.0 /100WBC 08/20/24 08:28 Sodium 141 mmol/L (136-145) 08/20/24 08:28 Potassium 4.2 mmol/L (3.5-5.1) 08/20/24 08:28 Chloride 103 mmol/L (98-107) 08/20/24 08: Carbon Dioxide 25 mmol/L (22-29) 08/20/24 08:28 Anion Gap 17.2 (5-19) 08/20/24 08:28 BUN 11 mg/dL (6-20) 08/20/24 08:28 Creatinine 0.8 mg/dL (0.7-1.2) 08/20/24 08:28 GFR Calculation 103.6 mL/min (90-130) 08/20/24 08:28 Glucose 113 mg/dL (65-115) 08/20/24 08:28 Estimat Average Glucose 134 08/19/24 02:57 Hemoglobin A1c 6.3 % (4.0-6.0) H 08/19/24 02:57 Calculated Osmolality 292 mOsm/kg (285-295) 08/20/24 08:28 Calcium 9.1 mg/dL (8.5-10.5) 08/20/24 08:28 Total Bilirubin 0.4 mg/dL (0.15-1.2) 08/18/24 03:02 AST 36 U/L (0-40) 08/18/24 03:02 ALT 28 U/L (0-41) 08/18/24 03:02 Alkaline Phosphatase 80 U/L (40-130) 08/18/24 03:02 Troponin T Baseline 312 ng/L (0-15) H* 08/18/24 03:02 Total Protein 6.9 g/dL (6.6-8.7) 08/18/24 03:02 Albumin 4.6 g/dL (3.5-5.2) 08/18/24 03:02 Globulin 2.3 g/dL (1.3-4.6) 08/18/24 03:02 Triglycerides 107 mg/dL (0-150) 08/19/24 02:57 Cholesterol 145 mg/dL (0-200) 08/19/24 02:57 LDL Cholesterol, Calc 69 mg/dL (50-129) 08/19/24 02:57 HDL Cholesterol 55 mg/dL (60-100) L 08/19/24 02:57 LDL/HDL Ratio 1.25 RATIO (0.00-3.22) 08/19/24 02:57 Cholesterol/HDL Ratio 2.64 mg/dL (1.0-5.00) 08/19/24 02:57 Vitals Last Vital Signs Temp 98.6 F 08/20/24 07:56 Pulse 75 08/20/24 07:56 Resp 20 H 08/20/24 07:56 BP 143/88 08/20/24 07:56 Pulse Ox 97 08/20/24 07:56 O2 Del Method Oxymask 08/20/24 07:56 Discharge Plan Discharge Patient Disposition: Home Condition: Stable Prescriptions: New nitroglycerin 0.4 mg Tablet, Sublingual 0.4 mg sublingual Q5M PRN (Reason: Chest Pain) Qty: 30 1RF clopidogrel 75 mg Tablet 75 mg PO DAILY Qty: 90 3RF atorvastatin 40 mg Tablet 80 mg PO BEDTIME Qty: 90 3RF lisinopril 2.5 mg Tablet 2.5 mg PO DAILY Qty: 90 1RF metoprolol succinate 25 mg Tablet Extended Release 24 Hr 12.5 mg PO DAILY Qty: 90 1RF Continued aspirin [Aspir-81] 81 mg Tablet,Delayed Release (Dr/Ec) 81 mg PO DAILY sertraline 25 mg Tablet 25 mg PO DAILY Discharge Orders: Discharge Order (Routine); Ordered 08/20/24 Ordered By: Vinita Vilchis Referrals: Alycia Marx NP [Nurse Practitioner, Cardiology] - 7-10 days Godfrey Cornelius MD [Family Provider, Family Practice] Discharge Diet: Advance as tolerated Discharge Activity: Increase activity as tolerated Patient Instructions: Heart Catheterization (DC), Opioid Safety, Post Angiogram Home Care Instructions Activity Restrictions/Additional Instructions: No lifting greater than 5 pounds for the next 4 days with right arm. Discharge Attestations Time Spent in Discharge Care*: less than 30 min Quality Metrics Clinical Quality Measures [ Acute Myocardial Infaction { Clinical Trial Participant: No; Contraindication to aspirin: None; Aspirin prescribed; Contraindication to statin: None; Statin prescribed; Contraindication to PCI: None; PCI performed;}] Coding Level of Care Code Acute Code for [facility] Diagnoses ST elevation HI (STEMI) I21.3 Hypotension I95.9 Arrhythmia I49.9
--- NOTE | 2024-08-20 11:17 | PC.NURSE ---
[facility] will contact patient after reviewing new patient referral paperwork.
[2024-08-20 12:03] VITALS: BP 143/88; PULSE 67; RESP 15; O2SAT 96
== END 2024-08-20 12:04 | disposition home or self-care (01) | DRG 322 ==
LOC: ER 03:58 → CCL 04:05 → ICU 05:30 → CSU 13:51
PROVIDERS: Nurse Practitioner Family; Admitting Provider Internal Medicine Cardiovascular Disease; Emergency Provider Emergency Medicine; Family Provider Family Medicine; Visit Provider Internal Medicine Cardiovascular Disease
PROC: 027034Z Dilation of Coronary Artery, One Artery with Drug-eluting Intraluminal Device, Percutaneous Approach (ICD-10-PCS; principal; 2024-08-18 04:30)
PROC: 027034Z Dilation of Coronary Artery, One Artery with Drug-eluting Intraluminal Device, Percutaneous Approach (ICD-10-PCS; 2024-08-18 04:30)
DX: I21.11 ST elevation (STEMI) myocardial infarction involving right coronary artery (principal); F17.220 Nicotine dependence, chewing tobacco, uncomplicated; Z79.02 Long term (current) use of antithrombotics/antiplatelets; Z79.82 Long term (current) use of aspirin
CPT/HCPCS: 36415; 71045; 80048; 80053; 80061; 83036; 84484; 85025; 85347; 93005; 93306; 93454; 96374; 96375; 96376; 99152; 99153; 99285; A9270; C1725; C1769; C1874; C1887; C1894; C9600; J1200; J1644; J2250; J2270; J2405; J3010; J3490; J7030; J9999; Q9967

== ENCOUNTER → 2024-08-28 14:46 | Outpatient (BNVA) | payer OTHER, SELFPAY | PROVIDERS: Family Provider Family Medicine; Visit Provider Nurse Practitioner Family | DX: I21.9 Acute myocardial infarction, unspecified (principal) | CPT/HCPCS: 36415; 80053; 82550; 85025 ==

== ENCOUNTER 2024-10-21 15:02 | Emergency (ER) | payer OTHER, SELFPAY ==
[2024-10-21 15:09] VITALS: BP 172/119; PULSE 81; TEMP 36.4; O2SAT 100
[2024-10-21 16:30] VITALS: PULSE 101; O2SAT 93
--- NOTE | 2024-10-21 16:48 | XRR_ITS ---
PROCEDURE INFORMATION: Exam: XR Abdomen Exam date and time: 10/21/2024 4:55 PM Age: 49 years old Clinical indication: Abdominal pain; Additional info: Abd pain TECHNIQUE: Imaging protocol: Radiologic exam of the abdomen. Views: Frontal supine view of the abdomen. 1 View. COMPARISON: CR XR chest 1V portable [id number] 08/18/2024 3:07 AM FINDINGS: Gastrointestinal tract: Gas is present in nondilated loops of stomach, small bowel and colon. Intraperitoneal space: 4 mm triangular calcification in the left lower pelvis. An additional round left pelvic calcification likely represents a phlebolith. No calculi overlie the renal shadows. Abdominal mass is not identified. Bones/joints: The osseous structures are unremarkable. XR/XR KUB [id number] IMPRESSION: 1. Small left pelvic calcification which could represent a vascular calculus or distal ureteral stone. Finding can be further assessed with unenhanced abdomen and pelvis CT if indicated. 2. Nonspecific bowel gas pattern which could reflect ileus.
--- NOTE | 2024-10-21 16:49 | ED_ITS ---
HPI - Abdominal Pain 2 General: Chief Complaint: Abdominal Pain Stated Complaint: low lt abd pain Time Seen by Provider: 10/21/24 15:21 Source: patient Mode of arrival: ambulatory Limitations: no limitations History of Present Illness: 49-year-old male states he had sudden on set of left lower quadrant and left flank pain 3 hours ago. States is very sharp pain causing nausea that is worse was 8 out of 10. He states roughly 30 minutes ago his pain has since resolved. States it resolved suddenly feels back to his baseline with no pain. He denies any trouble urinating denies any fever. Associated Symptoms: Reports nausea; Denies chills, diarrhea, dysuria, fever(s) and vomiting Related Data Home Medications ?Medication ?Instructions ?Recorded ?Confirmed aspirin 81 mg tablet,delayed 81 mg PO DAILY 08/18/24 0 10/21/24 release multivitamin (Daily Multi-Vitamin 1 tab PO DAILY 10/1110/21/24 tablet) Previous Rx's ?Medication ?Instructions ?Recorded atorvastatin 40 mg tablet 80 mg (2 x 40 mg) PO BEDTIME #90 08/20/24 tabs clopidogrel 75 mg tablet 75 mg PO DAILY #90 tabs 08/09 06/05 lisinopril 2.5 mg tablet 2.5 mg PO DAILY #90 tabs 04/04 metoprolol succinate 25 mg 12.5 mg (1/2 x 25 mg) PO DA DANNY #90 08/20/24 tablet,extended release 24 hr tabs nitroglycerin 0.4 mg sublingual 0.4 mg sublingual Q5M PRN Chest 08/20/24 tablet Pain #30 tabs Allergies Allergy/AdvReac Type Severity Reaction Status Date / Time No Known Allergies Allergy Verified 10/21/24 15:15 Review of Systems 2 Const: Denies: fever(s), chills, body aches or change in appetite ENMT: Denies: throat pain or dental pain Card: Denies: chest pain Resp: Denies: dyspnea GI: Reports: abdominal pain and nausea; Denies: vomiting or diarrhea : Reports: flank pain; Denies: dysuria Musc: Denies: neck pain or back pain Skin/Breast: Denies: rash Neuro: Denies: headache(s) PFSH ED 2 PFSH: Social History Smoking and tobacco/nicotine status: never used tobacco/nicotine Physical Exam 2 Const: COMMON NORMALS: no acute distress, patient oriented x3 and healthy appearing HENMT: COMMON NORMALS: normocephalic and atraumatic HEAD & SCALP: n ormocephalic and atraumatic Eye: COMMON NORMALS: conjunctivae normal CONJUNCTIVA: Yes conjunctivae normal Neck/C-Spine: COMMON NORMALS: full ROM and supple Chest: COMMONS NORMALS: normal inspection of the chest Resp: COMMON NORMALS: normal respiratory effort Cardio: COMMON NORMALS: regular rate, regular rhythm and No murmurs present (Cardio) RATE: regular rate RHYTHM: regular rhythm GI: COMMON NORMALS: Normal to inspection, nondistended, normoactive bowel sounds present, Soft to palpation, non-tender and no masses PALPATION: Yes Soft to palpation Extremity: COMMON NORMALS: normal to inspection and full ROM Neuro: COMMON NORMALS: patient oriented x3, moves all extremities and no focal motor deficits Psych: COMMON NORMALS: mental status grossly normal, Normal thought process present and cooperative THOUGHT PROCESS: Normal thought process present Skin: COMMON NORMALS: no rashes or lesions noted and no wounds GENERAL SKIN EXAM: no rashes or lesions noted Course 2 Vital Signs: Vital signs: Vital Signs Temperature 97.5 F L 10/21/24 15:09 Pulse Rate 101 H 10/21/24 16:30 Blood Pressure 172/119 10/21/24 15:09 Pulse Oximetry 93 10/21/24 16:30 Oxygen Delivery Me thod Room Air 10/21/24 16:30 MDM - Abdominal Pain Medical Decision Making Patient presents here with flank pain that since resolved x-ray shows a kidney stone in the bladder is likely passed a kidney stone has slightly elevated white count did offer him a CT scan he states he feels much improved would like to go home he is stable for discharge at this time return if worsening. Medical Records I reviewed the patient's medical records. Lab Data I reviewed the patient's lab results. 10/21/24 16:29 10/21/24 16:29 Labs/Radiology: Radiology Impressions KUB X-Ray 10/21/24 16:48 IMPRESSION: 1. Small left pelvic calcification which could represent a vascular calculus or distal ureteral stone. Finding can be further assessed with unenhanced abdomen and pelvis CT if indicated. 2. Nonspecific bowel gas pattern which could reflect ileus. Laboratory Results WBC 17.82 10^3/uL (3.29-11.43) H 10/21/24 16: RBC 5.40 10^6/uL (3.85-5.65) 10/21/24 16: Hgb 17.00 g/dL (11.27-16.99) H 10/21/24 16: Hct 47.9 % (37-53) 10/21/24 16: MCV 88.7 fl (82-101) 10/21/24 16: MCH 31.5 pg (27-33) 10/21/24 16: MCHC 35.5 g/dL (30-55) 10/21/24 16: RDW 13.5 % (12.1-15.1) 10/21/24 16: Plt Count 350 10^3/cmm (157-399) 10/21/24 16: MPV 10.2 fL (7.4-10.4) 10/21/24 16: Neut % (Auto) 86.1 % 10/21/24 16: Lymph % (Auto) 8.1 % 10/21/24 16: [place] % (Auto) 4.9 % 10/21/24 16: Eos % (Auto) 0.3 % 10/21/24 16: Baso % (Auto) 0.3 % 10/21/24 16: Neut # (Auto) 15.33 10^3/uL (1.8-7.7) H 10/21/24 16: Lymph # (Auto) 1.4 10^3/uL (0.8-4.8) 10/21/24 16: [place] # (Auto) 0.9 10^3/uL (0.2-0.9) 10/21/24 16: Eos # (Auto) 0.1 10^3/uL (0.0-0.8) 10/21/24 16: Baso # (Auto) 0.1 10^3/uL (0.0-0.1) 10/21/24 16: Nucleated RBC % (auto) 0 % 10/21/24 16: Nucleated RBCs # 0.0 /100WBC 10/21/24 16:29 Sodium 136 mmol/L (136-145) 10/21/24 16:29 Potassium 3.6 mmol/L (3.5-5.1) 10/21/24 16: Chloride 97 mmol/L (98-107) L 10/21/24 16:29 Carbon Dioxide 21 mmol/L (22-29) L 10/21/24 16: Anion Gap 21.6 (5-19) H 10/21/24 16:29 BUN 15 mg/dL (6-20) 10/21/24 16: Creatinine 0.9 mg/dL (0.7-1.2) 10/21/24 16: GFR Calculation 90.1 mL/min (90-130) 10/21/24 16: Glucose 165 mg/dL (65-115) H 10/21/24 16: Calculated Osmolality 287 mOsm/kg (285-295) 10/21/24 16: Calcium 9.8 mg/dL (8.5-10.5) 10/21/24 16: Total Bilirubin 0.7 mg/dL (0.15-1.2) 10/21/24 16: AST 19 U/L (0-40) 10/21/24 16: ALT 35 U/L (0-41) 10/21/24 16: Alkaline Phosphatase 124 U/L (40-130) 10/21/24 16:29 Total Protein 7.8 g/dL (6.6-8.7) 10/21/24 16: Albumin 4.8 g/dL (3.5-5.2) 10/21/24 16: Globulin 3.0 g/dL (1.3-4.6) 10/21/24 16: Lipase 19 U/L (13-60) 10/21/24 16:29 Urine Color Dark yellow (Yellow) A 10/21/24 17:10 Urine Appearance Cloudy (CLEAR) A 10/21/24 17:10 Urine pH 5.5 (5-7) 10/21/24 17:10 Ur Specific [place] 1.024 (1.005-1.030) 10/21/24 17:10 Urine Protein 1+ (Negative) A 10/21/24 17:10 Urine Glucose (UA) Trace (Normal) H 10/21/24 17:10 Urine Ketones Trace (Negative) 10/21/24 17:10 Urine Blood 3+ (Negative) A 10/21/24 17:10 Urine Nitrate Negative (Negative) 10/21/24 17:10 Urine Bilirubin Negative (Negative) 10/21/24 17:10 Urine Urobilinogen 1.0 mg/dL (Negative) 10/21/24 17:10 Ur Leukocyte Esterase 2+ (Negative) A 10/21/24 17:10 Urine RBC 21-50 /hpf (0-2) H 10/21/24 17:10 Urine WBC 21-50 /hpf (0-5) H 10/21/24 17:10 Ur Squamous Epith Cells 6-10 /hpf (0-5) 10/21/24 17:10 Amorphous Sediment Not Reportable 10/21/24 17:10 Urine Bacteria None seen /hpf (NONE) 10/21/24 17:10 Hyaline Casts 29.37 /lpf 10/21/24 17:10 XR interpretation done by ED provider, pending radiology final review ED provider radiology interpretation(s): X-ray KUB likely kidney stone in the bladder Discharge Plan Discharge Patient Disposition: Home Clinical Impression: Kidney stone Condition: Stable Prescriptions: No Action multivitamin [Daily Multi-Vitamin] Tablet 1 tab PO DAILY aspirin 81 mg Tablet,Delayed Release (Dr/Ec) 81 mg PO DAILY atorvastatin 40 mg Tablet 80 mg PO BEDTIME Qty: 90 3RF clopidogrel 75 mg Tablet 75 mg PO DAILY Qty: 90 3RF nitroglycerin 0.4 mg Tablet, Sublingual 0.4 mg sublingual Q5M PRN (Reason: Chest Pain) Qty: 30 1RF metoprolol succinate 25 mg Tablet Extended Release 24 Hr 12.5 mg PO DAILY Qty: 90 1RF lisinopril 2.5 mg Tablet 2.5 mg PO DAILY Qty: 90 1RF Discharge Orders: Discharge ED (Routine); Ordered 10/21/24 Ordered By: Herminio Massey Discharge Diet: Advance as tolerated Discharge Activity: Resume usual activity Patient Instructions: Kidney Stones (ED) Print Language: Faroese Coding Level of Care Code ED Clinical Lab Scientist for Avril Morley
[2024-10-21 17:03] LABS: Hematocrit 47.9 % (37-53); Hemoglobin 17.00 g/dL (11.27-16.99); Mean Corpuscular HGB Conc 35.5 g/dL (30-55); Mean Corpuscular Hemoglobin 31.5 pg (27-33); Mean Corpuscular Volume 88.7 fl (82-101); Nucleated Red Blood Cells % 0 %; Platelet Count 350 10^3/cmm (157-399); Red Blood Count 5.40 10^6/uL (3.85-5.65); White Blood Count 17.82 10^3/uL (3.29-11.43)
[2024-10-21 17:25] LABS: Alanine Aminotransferase 35 U/L (0-41); Albumin Level 4.8 g/dL (3.5-5.2); Alkaline Phosphatase 124 U/L (40-130); Anion Gap 21.6 (5-19); Aspartate Amino Transferase 19 U/L (0-40); Blood Urea Nitrogen 15 mg/dL (6-20); Calcium 9.8 mg/dL (8.5-10.5); Carbon Dioxide 21 mmol/L (22-29); Chloride 97 mmol/L (98-107); Creatinine Clr Calc Pharmacy 121.4320; Globulin 3.0 g/dL (1.3-4.6); Glucose 165 mg/dL (65-115); Lipase 19 U/L (13-60); Osmolality Calculated 287 mOsm/kg (285-295); Potassium 3.6 mmol/L (3.5-5.1); Sodium 136 mmol/L (136-145); Total Protein 7.8 g/dL (6.6-8.7)
[2024-10-21 17:30] LABS: Glucose Urine UA Trace (Normal); Nitrate Urine Negative (Negative); Specific Gravity, Urine 1.024 (1.005-1.030)
[2024-10-21 17:33] LABS: Add Urine Microscopic? YES
== END 2024-10-21 18:03 | disposition home or self-care (01) ==
PROVIDERS: Emergency Provider Emergency Medicine
DX: N20.0 Calculus of kidney (principal); Z79.82 Long term (current) use of aspirin; Z79.899 Other long term (current) drug therapy
CPT/HCPCS: 36415; 74018; 80053; 81001; 83690; 85025; 87086; 99284

== ENCOUNTER 2025-03-27 10:08 | Emergency (ER) | payer OTHER, SELFPAY ==
--- NOTE | 2025-03-27 10:09 | ECG_ITS ---
[facility] 2025[facility]27 Pat Name: Marcin Macias Department: Room: Gender: Male [employer] Teacher: : 1975 Requested By: Donn Coleman Order Number: [id number] Brooke MD: Gary Samuels M.D. Measurements Intervals [place] Rate: 79 P: 63 WV: 144 QRS: -29 QRSD: 101 T: 117 QT: 410 QTc: 472 Interpretive Statements SINUS RHYTHM LEFT VENTRICULAR HYPERTROPHY AND ST-T CHANGE [VOLTAGE CRITERIA PLUS ST/T ABNORMALITY] Compared to ECG 08/18/2024 09:14:56 No significant changes Electronically Signed On 03-27-2025 21:38:09 SERVICE CLEANER by Gary Samuels M.D. [id number]
--- NOTE | 2025-03-27 10:09 | XR_ITS ---
WS: [id number] Portable AP upright chest, 03/27/2025 Clinical Data: chest pain Comparison: Portable chest, 08/18/2024 Findings: No nodules, masses or effusions are seen. The heart is minimally enlarged. The pulmonary vascularity is not increased. No pneumonia or pneumothorax is seen. There is elevation of the left diaphragm unchanged. There are monitor leads on the chest wall. XR/XR chest 1V portable [id number] Impression: Mild cardiomegaly.
[2025-03-27 10:17] VITALS: BP 200/133; PULSE 84; RESP 21; TEMP 37.1; O2SAT 100; BMI 31.5
[2025-03-27 10:26] LABS: Hematocrit 45.4 % (37-53); Hemoglobin 15.50 g/dL (11.27-16.99); Mean Corpuscular HGB Conc 34.1 g/dL (30-55); Mean Corpuscular Hemoglobin 31.4 pg (27-33); Mean Corpuscular Volume 92.1 fl (82-101); Nucleated Red Blood Cells % 0 %; Platelet Count 305 10^3/cmm (157-399); Red Blood Count 4.93 10^6/uL (3.85-5.65); White Blood Count 14.30 10^3/uL (3.29-11.43)
--- NOTE | 2025-03-27 10:36 | W.ED.CHESTPA ---
HPI - Chest Pain General: Chief Complaint: Chest Pain Stated Complaint: cp, sob Time Seen by Provider: 03/27/25 10:11 History of Present Illness: 49-year-old male with a history of coronary disease complaining of sudden onset of chest pain substernal radiating into the back began while he was brushing his teeth this morning. Denies any recent trauma no recent fever sweats or chills no radiation of pain. Some mild epigastric discomfort as well no vomiting. No hematemesis or coffee-ground emesis. Patient had single-vessel disease stented in August of this year. No history of previous abdominal surgeries patient is a former heavy drinker. Associated symptoms: Reports abdominal pain and nausea; Deny dyspnea or fever(s) Related Data Home Medications ?Medication ?Instructions ?Recorded ?Confirmed aspirin 81 mg tablet,delayed 81 mg PO DAILY 08/18/24 03/27/25 release multivitamin (Daily Multi-Vitamin 1 tab PO DAILY 10/11/24 03/27/25 tablet) atorvastatin 40 mg tablet 80 mg PO QAM 03/27/25 03/27/25 lisinopril 2.5 mg tablet 2.5 mg PO DAILY 03/27/25 03/27/25 Previous Rx's ?Medication ?Instructions ?Recorded clopidogrel 75 mg tablet 75 mg PO DAILY #90 tabs 08/20/24 metoprolol succinate 25 mg 12.5 mg (1/2 x 25 mg) PO DAILY #90 08/20/24 tablet,extended release 24 hr tabs nitroglycerin 0.4 mg sublingual 0.4 mg sublingual Q5M PRN Chest 08/20/24 tablet Pain #30 tabs pantoprazole 40 mg tablet,delayed 40 mg PO BID #40 tabs 03/27/25 release Allergies Allergy/AdvReac Type Severity Reaction Status Date / Time No Known Allergies Allergy Verified 10/21/24 15:15 Review of Systems Const: Denies: fever(s) or chills Card: Reports: chest pain Resp: Denies: dyspnea GI: Reports: abdominal pain and nausea : Denies: dysuria, urinary frequency or urinary urgency Musc: Denies: neck pain or back pain Skin/Breast: Denies: rash PFSH ED PFSH: Social History Smoking and tobacco/nicotine status: never used tobacco/nicotine Physical Exam Const: GENERAL APPEARANCE: cooperative ORIENTATION/CONSCIOUSNESS: Yes awake, Yes oriented to person, Yes oriented to place and Yes oriented to time HENMT: COMMON NORMALS: normocephalic, atraumatic and hearing grossly normal bilaterally HEAD & SCALP: normocephalic and atraumatic Resp: COMMON NORMALS: normal respiratory effort, No retractions, No use of accessory muscles and clear to auscultation bilaterally AUSCULTATION: clear to auscultation bilaterally Cardio: COMMON NORMALS: regular rate, regular rhythm and No murmurs present (Cardio) RATE: regular rate RHYTHM: regular rhythm GI: COMMON NORMALS: Soft to palpation and No hepatosplenomegaly present AUSCULTATION: Yes normoactive bowel sounds PALPATION: Yes Soft to palpation, No Tenderness to palpation present (GI), No Guarding due to palpation present (GI) and Yes No hepatosplenomegaly present Extremity: COMMON NORMALS: normal to inspection, capillary refill normal, no clubbing, cyanosis or edema, no calf tenderness and no pedal edema Neuro: SENSORIUM/ORIENTATION: Yes oriented to person, Yes oriented to place and Yes oriented to time Skin: COMMON NORMALS: no rashes or lesions noted GENERAL SKIN EXAM: no rashes or lesions noted Course Vital Signs: Vital signs: Vital Signs Temperature 98.7 F 03/27/25 10:17 Pulse Rate 83 03/27/25 13:24 Respiratory Rate 22 H 03/27/25 10:44 Blood Pressure 106/73 03/27/25 13:24 Pulse Oximetry 98 03/27/25 13:24 Oxygen Delivery Me thod Room Air 03/27/25 11:09 MDM - Chest Pain Medical Decision Making Medical decision making Social determinants: None I reviewed the patient's medical record. I reviewed the patient's current home meds. Alternate historians: Patient's mother presents with him to his emergency room visit Differential diagnosis: Atypical chest pain, ACS, pneumonia, PE, chest pain due to GI source Lab Review: Labs reviewed on the chart white count 14,000 chemistries unremarkable troponin trended negative. Liver enzymes elevated with an elevated T bilirubin (patient reports she has had elevated liver enzymes in the past. Imaging: Chest x-ray elevated left hemidiaphragm unchanged from previous Assessment of risk Level of risk: High moderate Hospitalization considerations: Consideration for hospitalization pending cardiac workup Reexamination: On exam patient's symptoms have completely resolved he was given morphine nurse report after the morphine he had near complete resolution we also put nitro on him he is not having any symptoms at all now. Assessment and plan: Reviewed patient's previous cath report had single-vessel disease which was stented his cardiac enzyme negative EKG did not show any acute changes he is feeling much better will discharge patient home have him follow-up with cardiology also recommended he establish with primary care doctor he should have his liver enzymes and bilirubin rechecked within the next couple of weeks. Return to the emergency room has further problems. Case management to give the patient a short-term follow-up with cardiology and help establish with a PCP Lab Data 03/27/25 10:20 03/27/25 10:20 Radiology Impressions Chest X-Ray 03/27/25 10:09 Impression: Mild cardiomegaly. Gallbladder Ultrasound 03/27/25 11:27 IMPRESSION: 1. Mild diffuse fatty infiltration of the liver. Liver size upper limits of normal 2. Normal gallbladder 3. No hydronephrosis in the RIGHT kidney Laboratory Results WBC 14.30 10^3/uL (3.29-11.43) H 03/27/25 10:20 RBC 4.93 10^6/uL (3.85-5.65) 03/27/25 10:20 Hgb 15.50 g/dL (11.27-16.99) 03/27/25 10:20 Hct 45.4 % (37-53) 03/27/25 10:20 MCV 92.1 fl (82-101) 03/27/25 10:20 MCH 31.4 pg (27-33) 03/27/25 10:20 MCHC 34.1 g/dL (30-55) 03/27/25 10:20 RDW 13.1 % (12.1-15.1) 03/27/25 10:20 Plt Count 305 10^3/cmm (157-399) 03/27/25 10:20 MPV 10.1 fL (7.4-10.4) 03/27/25 10:20 Neut % (Auto) 70.1 % 03/27/25 10:20 Lymph % (Auto) 18.3 % 03/27/25 10:20 [place] % (Auto) 9.7 % 03/27/25 10:20 Eos % (Auto) 0.7 % 03/27/25 10:20 Baso % (Auto) 0.7 % 03/27/25 10:20 Neut # (Auto) 10.02 10^3/uL (1.8-7.7) H 03/27/25 10:20 Lymph # (Auto) 2.6 10^3/uL (0.8-4.8) 03/27/25 10:20 Douglas # (Auto) 1.4 10^3/uL (0.2-0.9) H 03/27/25 10:20 Eos # (Auto) 0.1 10^3/uL (0.0-0.8) 03/27/25 10:20 Baso # (Auto) 0.1 10^3/uL (0.0-0.1) 03/27/25 10:20 Nucleated RBC % (auto) 0 % 03/27/25 10:20 Nucleated RBCs # 0.0 /100WBC 03/27/25 10:20 D-Dimer 0.35 ug/mLFEU (0-0.59) 03/27/25 10:20 Sodium 139 mmol/L (136-145) 03/27/25 10:20 Potassium 3.8 mmol/L (3.5-5.1) 03/27/25 10:20 Chloride 97 mmol/L (98-107) L 03/27/25 10:20 Carbon Dioxide 27 mmol/L (22-29) 03/27/25 10:20 Anion Gap 18.8 (5-19) 03/27/25 10:20 BUN 18 mg/dL (6-20) 03/27/25 10:20 Creatinine 0.9 mg/dL (0.7-1.2) 03/27/25 10:20 GFR Calculation 90.1 mL/min (90-130) 03/27/25 10:20 Glucose 195 mg/dL (65-115) H 03/27/25 10:20 Calculated Osmolality 295 mOsm/kg (285-295) 03/27/25 10:20 Calcium 9.5 mg/dL (8.5-10.5) 03/27/25 10:20 Total Bilirubin 1.7 mg/dL (0.15-1.2) H 03/27/25 10:20 AST 219 U/L (0-40) H 03/27/25 10:20 ALT 171 U/L (0-41) H 03/27/25 10:20 Alkaline Phosphatase 134 U/L (40-130) H 03/27/25 10:20 Troponin T Baseline 18 ng/L (0-15) H 03/27/25 10:20 Troponin T 60 Minute 16.37 ng/L (0-15) H 03/27/25 11:10 Delta Troponin T -1.63 ABS# (0-10) L 03/27/25 11:10 Total Protein 7.5 g/dL (6.6-8.7) 03/27/25 10:20 Albumin 5.1 g/dL (3.5-5.2) 03/27/25 10:20 Globulin 2.4 g/dL (1.3-4.6) 03/27/25 10:20 Lipase 21 U/L (13-60) 03/27/25 10:20 Urine Color Dark yellow (Yellow) A 03/27/25 12:10 Urine Appearance Clear (CLEAR) 03/27/25 12:10 Urine pH 6.5 (5-7) 03/27/25 12:10 Ur Specific [place] 1.021 (1.005-1.030) 03/27/25 12:10 Urine Protein 1+ (Negative) A 03/27/25 12:10 Urine Glucose (UA) 2+ (Normal) H 03/27/25 12:10 Urine Ketones Negative (Negative) 03/27/25 12:10 Urine Blood Non-haemolysed trace (Negative) 03/27/25 12:10 Urine Nitrate Negative (Negative) 03/27/25 12:10 Urine Bilirubin Negative (Negative) 03/27/25 12:10 Urine Urobilinogen 2.0 mg/dL (Negative) H 03/27/25 12:10 Ur Leukocyte Esterase Trace (Negative) A 03/27/25 12:10 Urine RBC 3-5 /hpf (0-2) 03/27/25 12:10 Urine WBC 6-10 /hpf (0-5) 03/27/25 12:10 Ur Squamous Epith Cells 0-5 /hpf (0-5) 03/27/25 12:10 Amorphous Sediment Not Reportable 03/27/25 12:10 Urine Bacteria None seen /hpf (NONE) 03/27/25 12:10 Hyaline Casts 0-4 /lpf H 03/27/25 12:10 All radiology interpretation(s) finalized by discharge EKG Data EKG 1: I personally reviewed and interpreted this EKG as follows: Interpretation: EKG 03/27/2025 10:13 AM sinus rhythm no acute ST changes noted rate of 79 [place] interval 144 QTc 472. Q waves in 2 3 and aVF No significant change from EKG 08/18/2024 Discharge Plan Discharge Patient Disposition: Home Clinical Impression: Atypical chest pain, Elevated liver enzymes, History of coronary artery disease Condition: Stable Prescriptions: New pantoprazole 40 mg tablet,delayed release (DR/EC) 40 mg PO BID Qty: 40 0RF Rx Instructions: 1 p.o. twice daily x 10 days then 1 p.o. daily No Action multivitamin [Daily Multi-Vitamin] Tablet 1 tab PO DAILY aspirin 81 mg Tablet,Delayed Release (Dr/Ec) 81 mg PO DAILY clopidogrel 75 mg Tablet 75 mg PO DAILY Qty: 90 3RF nitroglycerin 0.4 mg Tablet, Sublingual 0.4 mg sublingual Q5M PRN (Reason: Chest Pain) Qty: 30 1RF metoprolol succinate 25 mg Tablet Extended Release 24 Hr 12.5 mg PO DAILY Qty: 90 1RF atorvastatin 40 mg tablet 80 mg PO QAM lisinopril 2.5 mg tablet 2.5 mg PO DAILY Discharge Orders: Discharge ED (Routine); Ordered 03/27/25 Ordered By: Donn Holloway Discharge Diet: Usual diet Discharge Activity: Limit activity as instructed Patient Instructions: Chest Pain (ED), Opioid Safety, Pain Management, Patient Portal & Tessa Instructions Activity Restrictions/Additional Instructions: Thank you for choosing [facility] for your healthcare needs today. It is very important that you follow up as instructed or that you return to the Emergency Department should you have concerns or if your condition changes or worsens in any way. Emergency department visits are focused on emergent conditions, in some cases you may require further evaluation on an outpatient basis. You were seen in the emergency room with complaints of chest pain and back pain. Your EKG did not show any acute changes cardiac enzymes did not show any elevation. Screening test for blood clot was negative. The remainder of your vital signs were normal. Your liver functions and total bilirubin were elevated. Ultrasound of your gallbladder was negative. Will discharge you home and have you follow-up with cardiology within the next few days. assistant front desk manager will make arrangements for follow-up appointment. assistant front desk manager will also try to help you get established with a primary care doctor. You should have your liver enzymes rechecked within the next 1 to 2 weeks. Return if you have further problems. We also recommend starting a medicine for your stomach 1 tablet twice a day for 10 days and 1 tablet daily (Please note that included in your discharge packet is information concerning opioid safety and pain management. This information is given to all patients were discharged from the ER regardless of their discharge diagnosis or the medicines they usually take or are prescribed.) Print Language: Vietnamese Coding Level of Care Code ED Irrigation System Operator for Avril Morley Heart Score HEART Score Components History: Moderately Suspicious EKG: Non-specific Changes Age: 45-64 yrs Risk Factors: >/=3 Risk Factors Troponin: Baseline Trop 16-45 ng/L HEART Score RESULT HEART Score: 6
[2025-03-27 10:42] VITALS: BP 191/131; PULSE 86
[2025-03-27] MEDS: nitroglycerin 1 gm/inch oint Pkt 1 INCH TOPICAL (10:42)
[2025-03-27 10:44] VITALS: RESP 22; O2SAT 100
[2025-03-27] MEDS: morphine 4 mg/mL SDV 1 mL IVP (10:44)
[2025-03-27 10:47] LABS: Troponin(5th) Baseline 18 ng/L (0-15)
[2025-03-27 10:49] LABS: Alanine Aminotransferase 171 U/L (0-41); Albumin Level 5.1 g/dL (3.5-5.2); Alkaline Phosphatase 134 U/L (40-130); Aspartate Amino Transferase 219 U/L (0-40); Blood Urea Nitrogen 18 mg/dL (6-20); Calcium 9.5 mg/dL (8.5-10.5); Carbon Dioxide 27 mmol/L (22-29); Chloride 97 mmol/L (98-107); Globulin 2.4 g/dL (1.3-4.6); Glucose 195 mg/dL (65-115); Osmolality Calculated 295 mOsm/kg (285-295); Sodium 139 mmol/L (136-145); Total Protein 7.5 g/dL (6.6-8.7)
[2025-03-27 11:09] VITALS: BP 151/98; PULSE 94; O2SAT 98
--- NOTE | 2025-03-27 11:17 | ECG_ITS ---
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 Measurements Intervals [place] Rate: 81 P: 51 AL: 139 QRS: -21 QRSD: 106 T: 105 QT: 390 QTc: 454 Interpretive Statements SINUS RHYTHM LEFT VENTRICULAR HYPERTROPHY AND ST-T CHANGE [VOLTAGE CRITERIA PLUS ST/T ABNORMALITY] INFERIOR MYOCARDIAL INFARCTION , PROBABLY OLD [40+ ms Q WAVE AND/OR ST/T ABNORMALITY IN II/aVF] Compared to ECG 03/27/2025 10:13:13 Myocardial infarct finding now present ST (T wave) deviation still present Electronically Signed On 03-27-2025 21:44:10 SAND SIFTER by Gary Samuels M.D. [email or web address]
[2025-03-27 11:20] LABS: Anion Gap 18.8 (5-19); Potassium 3.8 mmol/L (3.5-5.1)
--- NOTE | 2025-03-27 11:27 | US_ITS ---
WS: [id number] ULTRASOUND ABDOMEN LIMITED CLINICAL INFORMATION: Chest pain abdominal pain radiating to back elevated liver e COMPARISON: None. FINDINGS: Liver Size: Normal. Craniocaudal length: 15.9 cm. Echogenicity: Coarse Surface nodularity: None. Mass (size and location): None. Bile ducts Intrahepatic ducts: Normal. Common bile duct diameter: 0.4 cm. Gallbladder Normal. Gallstones: None. Gallbladder sludge: None. Gallbladder wall thickening: None. Pericholecystic fluid: None. Sonographic Tony sign: Absent. Pancreas Normal as visualized. Right kidney: Normal. Hydronephrosis: None. Size: 11.0 cm x 6.2 cm x 6.8 cm. Abdominal aorta and IVC Visualized portions are normal. Ascites: None. US/US gall bladder [id number] IMPRESSION: 1. Mild diffuse fatty infiltration of the liver. Liver size upper limits of no rmal 2. Normal gallbladder 3. No hydronephrosis in the RIGHT kidney
--- NOTE | 2025-03-27 11:40 | PC.NURSE ---
provided pt with urinal, US in room at this time, unable to urinate
[2025-03-27 12:01] VITALS: BP 123/97; PULSE 63; O2SAT 96
[2025-03-27 12:01] LABS: Lipase 21 U/L (13-60)
[2025-03-27 12:21] LABS: Glucose Urine UA 2+ (Normal); Nitrate Urine Negative (Negative); Specific Gravity, Urine 1.021 (1.005-1.030)
[2025-03-27 12:23] LABS: Add Urine Microscopic? YES
[2025-03-27 13:24] VITALS: BP 106/73; PULSE 83; O2SAT 98
== END 2025-03-27 13:24 | disposition home or self-care (01) ==
PROVIDERS: Emergency Provider Family Medicine
DX: R07.89 Other chest pain (principal); I25.10 Atherosclerotic heart disease of native coronary artery without angina pectoris; R74.01 Elevation of levels of liver transaminase levels; Z79.02 Long term (current) use of antithrombotics/antiplatelets; Z79.82 Long term (current) use of aspirin
CPT/HCPCS: 36415; 71045; 76705; 80053; 81001; 83690; 84484; 85025; 85378; 87086; 93005; 96374; 99285; J2270; J9999